=== PATIENT | male | born 1955 | race Caucasian/White ===

== ENCOUNTER → 2018-06-29 13:12 | Outpatient (CLI) | payer OTHER, SELFPAY | DX: Z23 Encounter for immunization (principal) | CPT/HCPCS: 90471; 90686 ==

== ENCOUNTER → 2018-09-28 09:49 | Outpatient (CLI) | payer OTHER, SELFPAY ==
[2018-09-28 10:28] LABS: BUN Creatinine Ratio 18.9 (6-22); Blood Urea Nitrogen 17 mg/dL (9-20); Estimated Glomerular Filt Rate > 60.0 mL/min (>60)
== END ==
PROVIDERS: Family Provider Internal Medicine; PCP Internal Medicine; Visit Provider Podiatrist
DX: M79.671 Pain in right foot (principal)
CPT/HCPCS: 36415; 82565; 84520

== ENCOUNTER → 2018-10-06 17:09 | Outpatient (CLI) | payer OTHER, SELFPAY ==
--- NOTE | 2018-10-06 | DI.MRI.S_ITS ---
PROCEDURE: MR FOOT RT WO/W CON INDICATIONS: RIGHT FOOT PAIN CENTERED AT PROXIMAL 1ST METATARSAL TECHNIQUE: Noncontrast sagittal T1 spin echo and T2 fast spin echo with fat saturation, long-axis T1 spin echo and T2 fast spin echo with fat saturation; short-axis T1 spin echo, proton density fast spin echo, and T2 fast spin echo with fat saturation through the forefoot. Post-contrast short axis, long axis, and sagittal T1 spin echo with fat saturation through the forefoot. COMPARISON: [facility], CR, XR FOOT 3+ VIEWS RIGHT, 09/28/2018, 9:13. FINDINGS: Image quality: Excellent. Bones and joints: No suspicious osseous enhancement. No bone marrow contusions or metatarsal stress fractures. The sesamoid bones appear in expected positions, without internal edema. Mild osteoarthritic changes are noted involving first MTP joint and first interphalangeal joint with joint space narrowing and subchondral sclerosis. Tiny subchondral cyst formation involving the plantar aspect of first metatarsal head is seen. No intraosseous lesions. Small amount of fluid is noted within the first MTP joint and first interphalangeal joint. No gross loose body. Soft tissues: No suspicious soft tissue enhancement. The visualized plantar foot muscles demonstrate normal signal and bulk. Visualized flexor and extensor tendons appear intact, without tenosynovitis. The distal insertions of the peroneus brevis and longus tendons appear intact. The principal Lisfranc ligament appears intact. No soft tissue ganglion cysts or bursal fluid collections. Sagittal images demonstrate no evidence for plantar plate tears. IMPRESSION: 1. Mild osteoarthritic changes at first MTP joint and first interphalangeal joint. No evidence of stress fracture. No bony erosive changes or suspicious bony lesion. 2. No enhancing soft tissue lesion. No discrete ganglion cyst. The forefoot tendons and ligaments are grossly intact. Dictated by: Buster Burroughs M.D. on 10/09/2018 at 8:21 Approved by: Buster Burroughs M.D. on 10/09/2018 at 8:34
== END ==
PROVIDERS: PCP Internal Medicine; Visit Provider Podiatrist
DX: M79.671 Pain in right foot (principal)
CPT/HCPCS: 73720; A9579

== ENCOUNTER → 2019-07-12 17:08 | Outpatient (CLI) | payer OTHER, SELFPAY | PROVIDERS: PCP Internal Medicine | DX: Z23 Encounter for immunization (principal) | CPT/HCPCS: 90471; 90686 ==

== ENCOUNTER → 2020-12-25 08:10 | Outpatient (CLI) | payer MEDICARE, SELFPAY ==
[2020-12-25] MEDS: COVID-19 VACC #1, MRNA(MOD) 100 MCG/0.5 ML VIAL IM (08:17)
== END ==
PROVIDERS: PCP Internal Medicine; Visit Provider Internal Medicine
DX: Z23 Encounter for immunization (principal)
CPT/HCPCS: 0011A; 91301

== ENCOUNTER → 2021-01-22 08:05 | Outpatient (CLI) | payer MEDICARE, SELFPAY ==
[2021-01-22] MEDS: COVID-19 VACC #2, MRNA(MOD) 100 MCG/0.5 ML VIAL IM (08:09)
== END ==
PROVIDERS: PCP Internal Medicine; Visit Provider Internal Medicine
DX: Z23 Encounter for immunization (principal)
CPT/HCPCS: 0012A; 91301

== ENCOUNTER → 2021-03-20 08:58 | Outpatient (CLI) | payer OTHER, SELFPAY ==
--- NOTE | 2021-03-20 | DI.US.S_ITS ---
PROCEDURE: US ABD AORTA ANEURYSM SCREEN INDICATIONS: SCREEN TECHNIQUE: Real time scanning was performed of the aorta and iliac arteries, with image documentation. COMPARISON: [facility], CT, ABDOMEN/PELVIS WITH CONTRAST, 11/26/2009, 8:40. [facility], CT, ABDOMEN WITH AND WITHOUT CONTR, 06/24/2006, 8:53. [facility], RG, US ABDOMEN, 07/15/1999, 8:03. FINDINGS: Aorta: Proximal aortic diameter measures 2.6 cm. Mid-aorta measures 2 cm. Distal aortic diameter is 1.9 cm. Iliac arteries: Right common iliac artery measures 1.2 cm. Left common iliac artery measures 1.2 cm. IMPRESSION: Negative for aneurysm. Dictated by: Flex Patel M.D. on 03/20/2021 at 9:46 Approved by: Flex Patel M.D. on 03/20/2021 at 9:46
== END ==
PROVIDERS: PCP Internal Medicine; Referring Provider Family Medicine; Visit Provider Family Medicine
DX: Z13.6 Encounter for screening for cardiovascular disorders (principal)
CPT/HCPCS: 76706

== ENCOUNTER → 2022-01-20 10:06 | Outpatient (CLI) | payer OTHER, SELFPAY ==
[2022-01-20 11:33] LABS: COVID19 -Nasal RAPID Negative (Negative)
== END ==
PROVIDERS: PCP Internal Medicine; Visit Provider Surgery
DX: Z01.812 Encounter for preprocedural laboratory examination; Z20.822 Contact with and (suspected) exposure to COVID-19
CPT/HCPCS: 87635; C9803

== ENCOUNTER 2022-01-21 11:02 | Day surgery (SDC) | payer OTHER, SELFPAY ==
[2022-01-21 11:30] VITALS: BP 135/74; PULSE 76; RESP 16; TEMP 36.4; O2SAT 96; BMI 24.2
[2022-01-21] MEDS: LACTATED RINGERS 1,000 ML 42 ML IV (11:47)
--- NOTE | 2022-01-21 13:30 | PM.HP.1 ---
History of Present Illness History of Present Illness Date Patient Seen: 01/21/22 Time Patient Seen: 13:30 Chief complaint: SCREENING COLONOSCOPY Narrative: Yoseph is here for a screening colonoscopy. His last was approximately 11 years ago. He denies rectal bleeding or melena. Patient History Family & Social History Social History: household members spouse Tobacco & Substance use: Smoking Status Former smoker alcohol intake current alcohol intake frequency 0-2 drinks per day Substance Use Type does not use Meds Home Medications and Allergies Home Medications Medication Instructions Recorded Confirmed Type IBUPROFEN (Motrin / Advil) 600 mg PO PRN #0 06/18/10 01/21/22 History ascorbic acid (vitamin C) 1 tab PO DAILY 11/24/18 01/21/22 History aspirin 81 mg tablet,delayed 81 mg PO DAILY 11/24/18 01/21/22 History release (Adult Aspirin Regimen) cholecalciferol (vitamin D3) 1 tab PO DAILY 11/24/18 01/21/22 History magnesium 1 tab PO DAILY 11/24/18 01/21/22 History vitamin B complex (B 1 tab PO DAILY 11/24/18 01/21/22 History Complex-Vitamin B12) sodium sul 1.479 gram-potas ch See Rx Instructions PO PER PKG DIR 01/12/22 01/21/22 Rx 0.188 gram-magnes sul 0.225 gram #24 tab tablet (Sutab) cetirizine 10 mg capsule (Zyrtec) 10 mg PO DAILY 01/21/22 01/21/22 History Allergies Allergy/AdvReac Type Severity Reaction Status Date / Time No Known Drug Allergies Allergy Verified 01/06/19 10:51 Exam Vital Signs (past 8 hours): - 01/21/22 11:30 Temperature 97.6 F Pulse Rate 76 Respiratory Rate 16 Blood Pressure 135/74 Pulse Oximetry 96 Oxygen Delivery Method Room Air Const General: healthy appearing Resp Effort & Inspection: normal respiratory effort GI Palpation: soft Assessment & Plan Assessment and plan (1) Colon cancer screening: Status: Acute Plan Risks benefits and alternatives of colonoscopy reviewed and he would like to proceed. COVID-19 COVID-19 status: Negative Result date/Date tested (Pos, Neg/Pending): 01/20/22 Time Spent With Patient Critical Care time: I spent a total of [] minutes of critical care time on this patient's care today; this time is exclusive of procedural time.
[2022-01-21] MEDS: fentaNYL 250 MCG/5 ML INJ IV (13:46)
[2022-01-21] MEDS: MIDAZOLAM 5 MG/5 ML VIAL IV (13:47)
[2022-01-21 13:55] VITALS: BP 89/59; PULSE 67; RESP 11; TEMP 36.9; O2SAT 96
--- NOTE | 2022-01-21 13:55 | PM.OP.COLON ---
Operative Date/Time/Diagnoses Date of procedure: 01/21/22 Time of procedure: 13:55 Pre-op diagnosis: Colon cancer screening Post-op diagnosis: same Procedure & Clinicians Study performed: Colonoscopy Same procedure as scheduled: Yes Indications: Colon cancer screening Surgeon: Elver Baires Procedure Notes SCOAP/Timeout: Done Procedure in detail: Procedure: The patient was brought to the endoscopy suite, placed in left lateral decubitus position. The patient was connected to monitoring devices. A time-out was performed. Sedation was administered. Once the patient was adequately sedated, a digital rectal exam was performed and was normal. The scope was then inserted and advanced to the cecum where the appendiceal orifice was identified and photographed. The scope was then slowly withdrawn over greater than 6 minutes. Mucosa was thoroughly inspected. No abnormalities were noted. The scope was retroflexed in the rectum. Moderate internal hemorrhoids were noted but it was otherwise normal. The scope was straightened and removed. The patient was awakened and brought to recovery. Versed: 6 mg Fentanyl: 150 mcg EBL: 0 Findings: Normal colon Scope withdrawal time: 9 Sedation minutes: 15 Post-procedure Recommendations: Colonoscopy in 10 years Disposition: PACU
[2022-01-21 14:00] VITALS: BP 111/76; BP 112/77; PULSE 65; PULSE 67; RESP 12; RESP 18; O2SAT 95
[2022-01-21 14:05] VITALS: BP 111/76; PULSE 59; RESP 16; O2SAT 96
[2022-01-21 14:10] VITALS: BP 98/62; PULSE 58; RESP 12; O2SAT 96
== END 2022-01-21 14:26 | disposition home or self-care (01) ==
PROVIDERS: PCP Family Medicine; Referring Provider Surgery; Visit Provider Surgery
PROC: 0DJD8ZZ Inspection of Lower Intestinal Tract, Via Natural or Artificial Opening Endoscopic (ICD-10-PCS; CPT 45378; principal; 2022-01-21 13:00)
DX: Z12.11 Encounter for screening for malignant neoplasm of colon (principal); K64.8 Other hemorrhoids
CPT/HCPCS: G0121; 99152; J2250; J3010

== ENCOUNTER → 2022-06-10 11:07 | Outpatient (CLI) | payer OTHER, SELFPAY ==
--- NOTE | 2022-06-10 11:10 | DI.RAD.S_ITS ---
PROCEDURE: XR LUMBAR SPINE 2-3V INDICATIONS: Lower back pain TECHNIQUE: 3 views of the lumbar spine were acquired. COMPARISON: None. FINDINGS: Bones: 5 [id number] vertebrae are present. There is normal bony alignment. No acute vertebral body compression fractures. No suspicious bony lesions. Moderate multilevel lumbar spondylosis with degenerative endplate changes, disc space loss, and endplate osteophyte formation. Moderate mid and lower facet arthropathy. Soft tissues: Overlying bowel gas pattern is normal. No suspicious soft tissue calcifications. Surgical clips in right upper quadrant compatible with prior cholecystectomy. IMPRESSION: Lumbar spine without acute osseous abnormalities. Moderate multilevel spondylosis of the lumbar spine with associated facet arthropathy. Dictated by: Zacarias Carter M.D. on 06/10/2022 at 15:54 Approved by: Zacarias Carter M.D. on 06/10/2022 at 15:55
== END ==
PROVIDERS: PCP Family Medicine; Referring Provider Family Medicine; Visit Provider Family Medicine
DX: M54.50 Low back pain, unspecified (principal); M47.816 Spondylosis without myelopathy or radiculopathy, lumbar region
CPT/HCPCS: 72100

== ENCOUNTER → 2022-11-01 06:46 | Outpatient (CLI) | payer OTHER, SELFPAY ==
--- NOTE | 2022-11-01 | DI.US.S_ITS ---
PROCEDURE: US CAROTID DOPPLER BI INDICATIONS: Scotoma involving central area TECHNIQUE: Color and pulse Doppler interrogation was performed of both carotid systems, with image documentation and velocity measurements. COMPARISON: None. FINDINGS: Stenosis calculations are based on SRU (Society of Radiologists in Ultrasound) criteria. Right side: Brachial blood pressure: 119/82 mm Hg. Common carotid artery peak systolic velocity: 81 cm/sec. Internal carotid artery peak systolic velocity: 49 cm/sec. Internal carotid artery end diastolic velocity: 20 cm/sec. External carotid artery peak systolic velocity: 80 cm/sec. ICA/CCA peak systolic ratio: 0.6 . Funes scale imaging description: Minimal plaque at the bifurcation Percent internal carotid artery stenosis: Less than 50% . Vertebral artery: Flow direction is antegrade. Left side: Brachial blood pressure: 110/75 mm Hg. Common carotid artery peak systolic velocity: 93 cm/sec. Internal carotid artery peak systolic velocity: 69 cm/sec. Internal carotid artery end diastolic velocity: 29 cm/sec. External carotid artery peak systolic velocity: 84 cm/sec. ICA/CCA peak systolic ratio: 0.8 . Funes scale imaging description: Minimal plaque at bifurcation Percent internal carotid artery stenosis: Less than 50% . Vertebral artery: Flow direction is antegrade. IMPRESSION: Less than 50% stenosis of the internal carotid arteries bilaterally. Dictated by: Shannan Salinas M.D. on 11/01/2022 at 12:22 Approved by: Shannan Salinas M.D. on 11/01/2022 at 12:29
--- NOTE | 2022-11-01 | DI.US.S_ITS ---
PROCEDURE: US RETRO PERITONEAL LIMITED INDICATIONS: FAMILY HISTORY CAD TECHNIQUE: Real time scanning was performed of the aorta and iliac arteries, with image documentation. COMPARISON: None. FINDINGS: Aorta: Proximal aortic diameter measures 2.4 cm. Mid-aorta measures 2.2 cm. Distal aortic diameter is 1.8 cm. Iliac arteries: Right common iliac artery measures 1.1 cm. Left common iliac artery measures 1.1 cm. IMPRESSION: No aneurysmal dilation. Relatively stable compared to prior exam noting mid aorta measures 2.2 cm compared to 2.0 cm. Dictated by: Shannan Salinas M.D. on 11/01/2022 at 12:20 Approved by: Shannan Salinas M.D. on 11/01/2022 at 12:21
--- NOTE | 2022-11-01 | DI.ECHO.S_ITS ---
[facility]---------+ [facility] +---------+ : : [address] : : : : [id number] : : : : Phone: [phone]+ Echocardiogram Report + + :Name: PITO ALSTON Study Date: 11/01/2022 Height: 79 in : :[facility] ReadingLocation: Weight: 215 lb : : Gender: Male BSA: 2.3 m2 : :: 1955 Age: 66 yrs BP: 110/72 mmHg: :Reason For Study: AAA SCREENING : :Ordering Physician: USHA, : :BRANDEE See Performed By: Yajaira Ackerman : :Referring: BRANDEE KERR : + + Interpretation Summary The ejection fraction is estimated to be 55-60%. There is mild mitral regurgitation. There is trace tricuspid regurgitation. The right ventricular systolic pressure is estimated to be at least 21 mmHg based on an estimated right atrial pressure of 3 mm Hg. Procedure: A two-dimensional transthoracic echocardiogram with color flow and Doppler was performed. The study quality was technically good. There is no prior echocardiogram noted for this patient. The patient was in sinus bradycardia with heart rates between 54-60 bpm during the exam. Left Ventricle: The left ventricle is normal in size and wall thickness. The ejection fraction is estimated to be 55-60%. Left ventricular wall motion is normal. Right Ventricle: The right ventricle is normal in size and function. Atria: The left atrial size is normal. Right atrial size is normal. There is no Doppler evidence for an interatrial shunt. Mitral Valve: The mitral valve is normal in structure and function. There is mild mitral regurgitation. Aortic Valve: The aortic valve is trileaflet. The aortic valve opens well. There is no aortic valve stenosis. No aortic regurgitation is present. Tricuspid Valve: The tricuspid valve is normal in structure and function. There is trace tricuspid regurgitation. The right ventricular systolic pressure is estimated to be at least 21 mmHg based on an estimated right atrial pressure of 3 mm Hg. Pulmonic Valve: The pulmonic valve leaflets are thin and pliable; valve motion is normal. There is trace pulmonic regurgitation. Great Vessels: The aortic root is normal size. The ascending aorta is at the upper limits of normal in size. The IVC is of normal diameter and collapses greater than 50% with a sniff. This suggests a low right atrial pressure of 3 mm Hg. Pericardium/ Pleura There is no pericardial effusion. There is no pleural effusion. MMode/2D Measurements & Calculations LVIDd: 4.9 cm LVOT diam: 2.2 cm LVIDs: 3.2 cm Ao root diam: 3.8 cm FS: 33.7 % asc Aorta Diam: 3.9 cm EPSS: 0.65 cm Ao Arch Diam (Prox Trans): 3.0 cm IVSd: 1.0 cm LVPWd: 0.87 cm LV harrell. diameter/BSA (cm/m^2): 2.1 LV sys. diameter/BSA (cm/m^2): 1.4 LA A2 area: 20.9 cm2 RA long axis: 5.9 cm LA A4 area: 22.4 cm2 RA area: 21.3 cm2 LA length (vol): 5.4 cm RA vol: 66.0 ml LA vol: 73.7 ml RA : 28.1 ml/m2 LA vol index: 31.4 ml/m2 IVC diam: 1.2 cm RVD1 (basal): 3.4 cm RVD2 (mid): 3.4 cm TAPSE: 1.8 cm Doppler Measurements & Calculations Ao V2 max: 147.0 cm/sec LVOT Max Raf: 110.5 cm/sec Ao V2 mean: 112.0 cm/sec LV V1 max P.9 mmHg Ao max P.6 mmHg LV V1 VTI: 24.2 cm Ao mean P.3 mmHg JASON(I,D): 2.8 cm2 Ao V2 VTI: 33.7 cm JASON(V,D): 2.9 cm2 sev ratio: 0.72 JASON indexed to BSA (cm^2/m^2): 1.2 MV E max raf: 63.7 cm/sec TR max raf: 217.0 cm/sec MV A max raf: 59.8 cm/sec TR max P.8 mmHg MV E/A: 1.1 PA V2 max: 85.0 cm/sec Med Peak E' Raf: 4.8 cm/sec PA V2 mean: 62.3 cm/sec E/E' med: 13.3 PA mean P.7 mmHg Lat Peak E' Raf: 9.2 cm/sec PA pr(Accel): 46.5 mmHg E/E' lat: 6.9 E/e' average: 10.1 MV dec time: 0.21 sec SVLVOT): 93.6 ml Reading Physician:02:35 PM
== END ==
PROVIDERS: PCP Family Medicine; Referring Provider Family Medicine; Visit Provider Family Medicine
DX: I65.23 Occlusion and stenosis of bilateral carotid arteries (principal); I34.0 Nonrheumatic mitral (valve) insufficiency; H53.419 Scotoma involving central area, unspecified eye; Z13.6 Encounter for screening for cardiovascular disorders; Z87.891 Personal history of nicotine dependence; Z82.49 Family history of ischemic heart disease and other diseases of the circulatory system
CPT/HCPCS: 76706; 76775; 93306; 93880

== ENCOUNTER → 2025-03-28 12:11 | Outpatient (CLI) | payer MEDICARE, OTHER, SELFPAY ==
--- NOTE | 2025-03-28 12:18 | DI.RAD.S_ITS ---
PROCEDURE: XR CHEST 2V INDICATIONS: Chest pain, unspecified TECHNIQUE: 2 views of the chest were acquired. COMPARISON: None. FINDINGS: Surgical changes and devices: None. Lungs and pleura: Lungs are clear. No pleural effusions or pneumothorax. Mediastinum: Mediastinal contours are normal. Heart size is normal. Bones and chest wall: No suspicious bony abnormalities. Soft tissues appear unremarkable. IMPRESSION: No acute cardiopulmonary abnormality is seen. Dictated by: Sondra Gardner M.D. on 03/28/2025 at 22:10 Approved by: Sondra Gardner M.D. on 03/28/2025 at 22:10
== END ==
PROVIDERS: PCP Family Medicine; Referring Provider Family Medicine; Visit Provider Family Medicine
DX: R07.9 Chest pain, unspecified (principal)
CPT/HCPCS: 71046

== ENCOUNTER → 2025-05-20 14:39 | Outpatient (CLI) | payer MEDICARE, OTHER, SELFPAY ==
--- NOTE | 2025-05-20 14:41 | DI.CT.S_ITS ---
PROCEDURE: CT CHEST WO CON INDICATIONS: DISORIENTATION OF RIB AND STERNUM TECHNIQUE: Noncontrast 5 mm thick sections acquired from the pulmonary apices to the posterior costophrenic angles. 1 mm lung window, 5 mm thick coronal and sagittal and 7 mm axial MIP reformats were then acquired. For radiation dose reduction, the following was used: automated exposure control, adjustment of mA and/or kV according to patient size. COMPARISON: [facility], CR, XR CHEST 2V, 03/28/2025, 12:15. FINDINGS: Image quality: Diagnostic. Lower Neck: No enlarged lymph nodes. Thyroid: No thyroid nodules which require sonographic follow up, per consensus guidelines. Axillae: No enlarged lymph nodes. Chest Wall: Unremarkable. Bones: Questionable nondisplaced fractures of the bilateral 1st rib costochondral joints (, 71).. Degenerative changes of the spine.. Lungs and Pleura: No pneumothorax or pleural effusions. No consolidation or suspicious nodules. Several scattered calcified granulomata are noted. Several areas of mucous plugging within the small airways. Heart: Heart size is normal. Mild coronary calcifications. No pericardial effusion. Thoracic Vessels: The aorta and pulmonary arteries demonstrate normal size. Atherosclerotic vascular calcifications. Mediastinum and Anushka: No enlarged lymph nodes. Esophagus: No wall thickening. No hiatal hernia. Upper Abdomen: Visualized upper abdomen solid organs and bowel loops appear normal. IMPRESSION: 1. Questionable nondisplaced fractures of the bilateral 1st rib costochondral junctions. Given symmetric bilateral appearance, it is unclear if these are fractures or physiologic. Recommend correlation with point tenderness. Otherwise, no acute fractures or osseous abnormalities are identified. 2. No suspicious pulmonary nodules. Scattered calcified granulomata and several areas of small airway mucous plugging. Dictated by: Memo Frey M.D. on 05/20/2025 at 17:39 Approved by: Memo Frey M.D. on 05/20/2025 at 17:47
== END ==
LOC: CT 14:40
PROVIDERS: PCP Family Medicine; Referring Provider Family Medicine; Visit Provider Orthopaedic Surgery
DX: R41.0 Disorientation, unspecified (principal); J98.4 Other disorders of lung; I70.90 Unspecified atherosclerosis
CPT/HCPCS: 71250